=== PATIENT | male | born 1955 | race Caucasian/White ===

== ENCOUNTER 2018-03-31 11:05 | Emergency (ER) | payer BC ==
[2018-03-31 11:19] VITALS: RESP 18; TEMP 98.1
[2018-03-31] MEDS ORDERED: KETOROLAC TROMETHAMINE 30 MG/ML SOL IM ONE (11:39)
[2018-03-31] MEDS ORDERED: KETOROLAC TROMETHAMINE 30 MG/ML SOL ONE (11:41)
[2018-03-31 13:30] VITALS: BP 133/83; PULSE 74; O2SAT 95
== END 2018-03-31 12:13 | disposition home or self-care (01) ==
LOC: ED 11:05
DX: M25.562 Pain in left knee (principal); W19.XXXA Unspecified fall, initial encounter
CPT/HCPCS: 73560; 96372; 99283; J1885; L1830

== ENCOUNTER 2018-03-31 14:29 | Emergency (ER) | payer BC ==
[2018-03-31 16:07] VITALS: RESP 16; TEMP 97.8
[2018-03-31 16:15] VITALS: BP 118/82; PULSE 94; O2SAT 95
== END 2018-03-31 16:14 | disposition home or self-care (01) ==
LOC: ED 14:29
DX: M25.562 Pain in left knee (principal)
CPT/HCPCS: 73560; 99283